=== PATIENT | female | born 1975 | race Caucasian/White ===

== ENCOUNTER 2022-03-27 09:01 | Emergency (ER) | payer MEDICAID ==
[2022-03-27 12:31] LABS: HEMOGLOBIN 14.3 gm/dl (12.3-15.3); RED BLOOD COUNT 4.53 M/UL (4.00-5.10); WHITE BLOOD COUNT 8.9 K/UL (4.5-11.0)
[2022-03-27 12:59] LABS: BUN/CREATININE RATIO 14 (0-10)
[2022-03-27] MEDS ORDERED: ZOFRAN 4 MG TAB4 MG PO (14:56)
[2022-03-27] MEDS ORDERED: TORADOL 10 MG T10 MG PO (14:56)
== END 2022-03-27 15:28 | disposition home or self-care (01) ==
LOC: ER1 09:01
PROVIDERS: Physician Assistant
DX: R10.84 Generalized abdominal pain (principal); R11.2 Nausea with vomiting, unspecified; R05.9 Cough, unspecified; Z90.710 Acquired absence of both cervix and uterus; F17.210 Nicotine dependence, cigarettes, uncomplicated; Z20.822 Contact with and (suspected) exposure to COVID-19
CPT/HCPCS: 71045; 80053; 81001; 83690; 84703; 85025; 87086; 96374; 99284; J2270; J2405; Q9967; U0002

== ENCOUNTER 2022-04-03 20:16 | Emergency (ER) | payer OTHER ==
[~2022-04-03 20:16] MED LIST: TORADOL 10 MG T10 MG PO; ZOFRAN 4 MG TAB4 MG PO
[2022-04-04 01:00] LABS: HEMOGLOBIN 14.5 gm/dl (12.3-15.3); RED BLOOD COUNT 4.66 M/UL (4.00-5.10); WHITE BLOOD COUNT 11.9 K/UL (4.5-11.0)
[2022-04-04 01:14] LABS: BUN/CREATININE RATIO 22 (0-10)
[2022-04-04] MEDS ORDERED: ZOFRAN ODT 4 MG4 MG PO (03:09)
[2022-04-04] MEDS ORDERED: BENTYL 20MG TAB20 MG PO (03:09)
[2022-04-04] MEDS ORDERED: AMOX TR-K CLV1 EAC4 PO (03:09)
== END 2022-04-04 03:32 | disposition home or self-care (01) ==
LOC: ER1 20:16
PROVIDERS: Physician Assistant
DX: R10.84 Generalized abdominal pain (principal); R11.2 Nausea with vomiting, unspecified; R10.817 Generalized abdominal tenderness; F17.210 Nicotine dependence, cigarettes, uncomplicated; Z87.442 Personal history of urinary calculi; Z90.710 Acquired absence of both cervix and uterus
CPT/HCPCS: 80053; 81001; 82150; 83605; 83690; 85025; 96374; 96375; 96376; 99284; J1885; J2405; Q9967